=== PATIENT | female | born 1990 | race Caucasian/White ===

== ENCOUNTER 2021-08-22 11:56 | Emergency (ER) | payer OTHER ==
[~2021-08-22] VITALS: Ht 162.6 cm; Wt 72.3 kg
[2021-08-22 12:23] VITALS: BP 118/69
== END 2021-08-22 12:34 | disposition home or self-care (01) ==
LOC: EMS 11:58
DX: F41.9 Anxiety disorder, unspecified (principal); F31.9 Bipolar disorder, unspecified
CPT/HCPCS: 99281; 99283